=== PATIENT | female | born 1965 | race Caucasian/White ===

== ENCOUNTER 2017-11-01 16:27 | Emergency (ER) | payer SELFPAY ==
[~2017-11-01] VITALS: Ht 160 cm; Wt 59.0 kg
[~2017-11-01 16:27] MED LIST: CHLORDIAZEPOXID25 M3 PO; CYMBALTA60 M1 PO; DULOXETINE HCL30 MG PO; FLUOXETINE HCL20 M2 PO; HYDROCODON-ACE1 EAC2 PO; IBUPROFEN600 M1 PO; MOBIC15 M1 PO; TRAZODONE HCL50 M1 PO
[2017-11-01 18:06] LABS: ABSOLUTE BASOPHIL COUNT 0.1 /CUMM (0.0-0.2); ABSOLUTE EOSINOPHIL COUNT 0.1 /CUMM (0.0-0.7); ABSOLUTE GRANULOCYTE CT 5.9 /CUMM (1.4-6.5); ABSOLUTE LYMPH COUNT 2.1 /CUMM (1.2-3.4); ABSOLUTE MONOCYTE COUNT 0.7 /CUMM (0.10-0.60); BASOPHIL % 1.4 % (0.0-2.0); EOSINOPHIL % 1.6 % (0-5); HEMATOCRIT 49.3 % (37-47); MEAN CORPUSCULAR HGB CONC 33.2 G/DL (33.0-37.0); MEAN CORPUSCULAR VOLUME 93.5 FL (81.0-99.0); MEAN PLATELET VOLUME 9.8 FL (7.4-10.4); PLATELET COUNT 240 /CUMM (130-400); RED BLOOD CELL CT 5.27 /CUMM (4.20-5.40); WHITE BLOOD CELL COUNT 8.9 /CUMM (4.8-10.8)
[2017-11-01 18:18] LABS: PT 11.1 SEC (9.4-12.5); PTT 31 SEC (25-37)
--- NOTE | 2017-11-01 19:38 | CT SCAN REPORT ---
EXAMINATION: CT ANGIOGRAM ABDOMEN AND PELVIS CLINICAL INFORMATION: Worsening lower back pain. Evaluate aneurysm. COMPARISON: 08/14/2016 TECHNIQUE: Multiple axial images were obtained through the abdomen and pelvis following the administration of 95 mL of Optiray 350 intravenous contrast. Coronal and sagittal reformatted images obtained and reviewed. Images were reviewed on a dedicated 3-D workstation. DLP: 373 mGy-cm FINDINGS: Vascular: 1. There is a distal descending thoracic aortic aneurysm which extends into the proximal abdominal aorta. This measures 4.3 cm in AP dimension. This is without significant change from the previous study performed 08/14/2016. The celiac axis originates during the aneurysm, with the origin widely patent. The superior mesenteric artery origin is also widely patent, at the distal aspect of the aneurysm. 2. The remainder of the abdominal aorta is normal in caliber without aneurysm or dissection. Normal origin of the inferior mesenteric artery. 3. Single bilateral renal arteries are widely patent. Minimal nonocclusive calcification at the origin of the right renal artery. 4. The iliac vasculature and proximal femoral vasculature are patent. Minimal calcification at the common femoral arteries bilaterally resulting in no significant stenosis. Nonvascular: The lung bases are clear. The liver is normal in size and shape. No focal hepatic lesion or biliary ductal dilatation. The gallbladder is unremarkable. The pancreas, spleen, and adrenal glands are unremarkable. The kidneys are normal in size, shape and position. No hydronephrosis. No hydroureter. The bladder is unremarkable. The stomach is unremarkable. The small bowel is normal in caliber without obstruction. Normal appendix. There is wall thickening involving the descending and sigmoid colon with mild adjacent inflammation. This is consistent with colitis. No free air or free fluid. No abdominal wall hernia. No lymphadenopathy. The uterus and adnexa are unremarkable. No acute or suspicious osseous abnormality. Anterior wedge deformities of the T11 and T12 vertebral bodies are unchanged. IMPRESSION: 1. Stable aneurysm of the distal descending thoracic aorta and proximal abdominal aorta. This measures up to 4.3 cm in AP dimension. Unchanged span of the aneurysm. 2. Wall thickening with inflammation involving the descending and sigmoid colon, suggestive of colitis.
--- NOTE | 2017-11-01 19:49 | ED NECK/BACK PAIN COMPLAINT ---
History of Present Illness General Chief Complaint: Low Back Pain/Injury Stated Complaint: BACK PAIN Source: patient Exam Limitations: no limitations Vital Signs & Intake/Output Vital Signs & Intake/Output Vital Signs Date Time Temp Pulse Resp B/P B/P Pulse O2 O2 Flow FiO2 Mean Ox Delivery Rate 11/01 1732 97.9 98 20 130/84 97 Room Air Room Air Allergies Coded Allergies: NO KNOWN ALLERGIES (12/11/12) Reconcile Medications Duloxetine HCl 30 MG CAPSULE.DR 90 MG PO DAILY MENTAL HEALTH (Reported) Meloxicam (Mobic) 15 MG TABLET 1 TAB PO DAILY PAIN/INFLAMMATION Triage Note: PT TO ED WITH C/O BACK PAIN AND HEADACHE, "I HAVE A TRIPLE A, I GO FOR A CT EVERY 6 MONTHS AND IT HAS BEEN GOOD". Triage Nurses Notes Reviewed? yes HPI: Patient presents for evaluation of a severe low back pain, described as a constant burning sensation that gets worse with movement, that began about 2 days ago. Patient states that she has been suffering from back pain episodes for over 10 years. She also states that she has a known bowel aortic aneurysm that is being monitored with CAT scans. Patient denies any known trauma likewise denies any saddle paresthesias or motor weakness. She has not tried any medications for her pain to this point. Patient states the pain wraps around from the back bilaterally into the hips and lower abdomen. Nothing seems to make her feel better. Past History Travel History Traveled to [place] past 21 day No Medical History Any Pertinent Medical History? 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 No Review of Systems Review of Systems Constitutional: Reports: no symptoms. Eyes: Reports: no symptoms. Ears, Nose, Throat, Mouth: Reports: no symptoms. Respiratory: Reports: no symptoms. Cardiovascular: Reports: no symptoms. Gastrointestinal/Abdominal: Reports: no symptoms. Musculoskeletal: Reports: see HPI. Skin: Reports: no symptoms. Neurological/Psychological: Reports: no symptoms. All Other Systems: Reviewed and Negative Physical Exam Physical Exam Neck: SEE BELOW Comments: Gen.: Well-nourished, well-developed, no acute respiratory distress. Mild to moderate distress while at rest secondary to back pain. Pain worsens with movement. Head: Normocephalic, atraumatic. Eyes: Normal inspection bilaterally Ears: Normal inspection bilaterally Nose: Normal inspection Throat/mouth : Moist mucosa Neck: Supple, full range of motion, no goiter Lungs: Quiet respirations Back: Decreased range of motion secondary to pain. Tenderness over the lumbosacral spine without associated soft tissue swelling ecchymoses or erythema. Nontender over the sacroiliac joints. Patient bends to about 45 with pain. Extremities: Normal range of motion grossly, lower extremities: No straight leg raise sign, sensation intact bilaterally (no saddle paresthesias), deep tendon reflexes normal bilaterally, sensation to light touch intact bilaterally. Muscle strength normal bilaterally (able to stand on heels and toes normally). Neurologic: Cranial nerves grossly intact, speech is clear Skin: warm and dry Psychiatric: Calm, cooperative, no apparent delusions or hallucinations Core Measures CVA/TIA Diagnosis: No Progress Differential Diagnosis: cauda equina syn, herniated disc, myofascial strain, ABDOMINAL AORTIC ANEURYSM, AORTIC DISSECTION Plan of Care: Orders Procedure Date/time Status URINALYSIS 11/01 1737 Active PARTIAL THROMBOPLASTIN TIME 11/01 1737 Complete PROTHROMBIN TIME 11/01 1737 Complete COMPREHENSIVE METABOLIC PANEL 11/01 1737 Active CBC WITHOUT DIFFERENTIAL 11/01 1737 Complete Current Medications Sig/Dharmesh Start time Last Medication Dose Stop Time Status Admin Ketorolac 30 MG ONCE ONE 11/01 2014 UNVr Tromethamine 11/01 2015 (Toradol) Lorazepam 0.5 MG ONCE ONE 11/01 2014 UNVr (Ativan) 11/01 2015 Laboratory Tests 11/01/17 1746: PT 11.1, INR 1.06, APTT 31, CBC w Diff NO MAN DIFF REQ, RBC 5.27, MCV 93.5, MCH 31.0, MCHC 33.2, RDW 13.0, MPV 9.8, Gran % 66.0, Lymphocytes % 23.4, Monocytes % 7.6, Eosinophils % 1.6, Basophils % 1.4, Absolute Granulocytes 5.9, Absolute Lymphocytes 2.1, Absolute Monocytes 0.7 H, Absolute Eosinophils 0.1, Absolute Basophils 0.1 Diagnostic Imaging: Discussed w/RAD: CT Scan. Radiology Impression: PATIENT: LONNIE MONTERO PRESENT AGE: 52 PATIENT ACCOUNT NO: [id number] : 63 LOCATION: [facility] ORDERING PHYSICIAN: Priya HUGHES SERVICE DATE: 11/01/17 EXAM TYPE: CAT - CT ABD & PELVIS ANGIOGRAM EXAMINATION: CT ANGIOGRAM ABDOMEN AND PELVIS CLINICAL INFORMATION: Worsening lower back pain. Evaluate aneurysm. COMPARISON: 08/14/2016 TECHNIQUE: Multiple axial images were obtained through the abdomen and pelvis following the administration of 95 mL of Optiray 350 intravenous contrast. Coronal and sagittal reformatted images obtained and reviewed. Images were reviewed on a dedicated 3-D workstation. DLP: 373 mGy-cm FINDINGS: Vascular: 1. There is a distal descending thoracic aortic aneurysm which extends into the proximal abdominal aorta. This measures 4.3 cm in AP dimension. This is without significant change from the previous study performed 08/14/2016. The celiac axis originates during the aneurysm, with the origin widely patent. The superior mesenteric artery origin is also widely patent, at the distal aspect of the aneurysm. 2. The remainder of the abdominal aorta is normal in caliber without aneurysm or dissection. Normal origin of the inferior mesenteric artery. 3. Single bilateral renal arteries are widely patent. Minimal nonocclusive calcification at the origin of the right renal artery. 4. The iliac vasculature and proximal femoral vasculature are patent. Minimal calcification at the common femoral arteries bilaterally resulting in no significant stenosis. Nonvascular: The lung bases are clear. The liver is normal in size and shape. No focal hepatic lesion or biliary ductal dilatation. The gallbladder is unremarkable. The pancreas, spleen, and adrenal glands are unremarkable. The kidneys are normal in size, shape and position. No hydronephrosis. No hydroureter. The bladder is unremarkable. The stomach is unremarkable. The small bowel is normal in caliber without obstruction. Normal appendix. There is wall thickening involving the descending and sigmoid colon with mild adjacent inflammation. This is consistent with colitis. No free air or free fluid. No abdominal wall hernia. No lymphadenopathy. The uterus and adnexa are unremarkable. No acute or suspicious osseous abnormality. Anterior wedge deformities of the T11 and T12 vertebral bodies are unchanged. IMPRESSION: 1. Stable aneurysm of the distal descending thoracic aorta and proximal abdominal aorta. This measures up to 4.3 cm in AP dimension. Unchanged span of the aneurysm. 2. Wall thickening with inflammation involving the descending and sigmoid colon, suggestive of colitis. DICTATED BY: Rufion Boss MD DATE/ TIME DICTATED:11/01/171928 FLIGHT/TRANSPORT NURSE:JAMILAH DATE/TIME TRANSCRIBED: 11/01/171928 CONFIDENTIAL, DO NOT COPY WITHOUT APPROPRIATE AUTHORIZATION. < Electronically signed in Other Vendor System> SIGNED BY: Rufino Boss MD 11/01/171937 Departure Departure Disposition: HOME OR SELF CARE Condition: Stable Clinical Impression Primary Impression: Acute exacerbation of chronic low back pain Referrals: Pete Kc APRN (PCP/Family) Additional Instructions: Rest, no exertional heavy lifting. Follow-up with your primary care physician for reevaluation this week. Toradol as needed for pain, Norflex as needed for muscle spasms. Return if any concerns or sudden worsening. Please note that there might be incidental findings in your evaluation that are unrelated to the current emergency department visit. Please notify your primary care doctor about this emergency department visit in order to obtain and review all of the testing performed so that these incidental findings can be monitored as needed. If you had an x-ray performed, please understand that some fractures may not be seen on the initial set of x-rays. If your symptoms persist you might need a repeat set of x-rays to check for such a fracture. If you had a laceration evaluated, please understand that foreign bodies such as glass or wood may not be visible to the naked eye or on plain x-rays. If the wound becomes red, swollen, increasingly more painful or if there is any drainage from the wound, please have it reevaluated by a physician for the possibility of a retained foreign body. If you're unable to follow up as outlined in the discharge instructions please return to the emergency department. Thank you for choosing the [facility] Emergency Department for your care. It was a pleasure to serve you today. Pramod Lopez M.D. [facility] Departure Forms: Customer Survey General Discharge Information Prescriptions: Current Visit Scripts Ketorolac Tromethamine 1 TAB PO Q6P PRN BACK PAIN #16 TAB pATIENT RECEIVED iv KETOROLAC IN THE EMERGENCY DEPARTMENT Orphenadrine Citrate 1 TAB PO BID PRN MUSCLE PAIN/SPASMS #20 TAB
[2017-11-01] MEDS ORDERED: ORPHENADRINE C100 MG PO (20:11)
[2017-11-01] MEDS ORDERED: KETOROLAC TROME10 M1 PO (20:11)
[2017-11-01 20:18] VITALS: BP 125/81
[2017-11-02] MEDS ORDERED: KRATOM PO (20:16)
== END 2017-11-01 20:33 ==
LOC: ERH 16:27
PROVIDERS: Physician Assistant
DX: M54.5 Low back pain (principal)
CPT/HCPCS: 74174; 81003; 96374; 96375; J1885

== ENCOUNTER 2017-11-02 14:18 | Emergency (ER) | payer OTHER ==
[~2017-11-02 14:18] MED LIST changes: +KETOROLAC TROME10 M1 PO; +ORPHENADRINE C100 MG PO
--- NOTE | 2017-11-02 14:23 | ED GI/GU/ABDOMINAL COMPLAINT ---
History of Present Illness General Chief Complaint: ETOH/Drug Related Complaint Stated Complaint: BIBA FOR ETOH Source: patient, old records, EMS Exam Limitations: intoxication Vital Signs & Intake/Output Vital Signs & Intake/Output Vital Signs Date Time Temp Pulse Resp B/P B/P Pulse O2 O2 Flow FiO2 Mean Ox Delivery Rate 11/020 97.6 87 20 115/68 11/02 2149 97.6 87 20 115/68 98 Room Air 11/02 2007 98.1 98 16 148/90 11/02 2000 98.1 98 18 148/90 98 11/02 1810 97.6 92 18 127/77 11/02 1800 97.6 92 18 127/77 99 Room Air 11/02 1630 98.2 96 18 186/82 11/02 1554 98.2 96 18 18682 99 Room Air 11/02 1430 96.8 115 20 144/105 11/02 1424 96.8 115 20 144/105 100 Room Air ED Intake and Output 11/03 0000 11/02 1200 Intake Total Output Total Balance Patient 130 lb Weight Weight Reported by Patient Measurement Method Allergies Coded Allergies: NO KNOWN ALLERGIES (12/11/12) Triage Nurses Notes Reviewed? yes Onset: Abrupt Duration: minute(s): (few) Associated Symptoms: NAUSEA, CONFUSED HPI: 52 year old female presents to the ER from home after 911 was called to the house found her wandering, disheveled. Patietn admits to drinking alcohol today and states she relapsed. History is limited as she is intoxicated. Patient reports she is feeling nauseated. (Jayant STONER,Kathy) Reconcile Medications Duloxetine HCl 30 MG CAPSULE.DR 90 MG PO DAILY MENTAL HEALTH (Reported) Ketorolac Tromethamine 10 MG TABLET 1 TAB PO Q6P PRN BACK PAIN pATIENT RECEIVED iv KETOROLAC IN THE EMERGENCY DEPARTMENT [KRATOM] (Unknown Strength) (Unknown Dose) PO DAILY SUPPLEMENT (Reported) Orphenadrine Citrate 100 MG TABLET.ER 1 TAB PO BID PRN MUSCLE PAIN/SPASMS ? n Is pt currently ? No (Trip STONER,Jerrell) Past History Travel History Traveled to [place] past 21 day No Medical History Any Pertinent Medical History? 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 No (Kathy Saba MD) Review of Systems Review of Systems Constitutional: Reports: see HPI (PER HPI, PATIETN INTOXICATED). (Kathy Saba MD) Physical Exam Physical Exam General Appearance: alert, awake, mild distress, moderate distress, DISHEVELED Head: atraumatic Eyes: Bilateral: normal appearance. Ears, Nose, Throat, Mouth: hearing grossly normal Neck: normal inspection, supple Respiratory: normal breath sounds, chest non-tender, no respiratory distress Cardiovascular: regular rate/rhythm Gastrointestinal: normal bowel sounds, soft, non-tender Extremities: normal range of motion Neurologic/Psych: awake, alert Skin: intact, normal color, warm/dry Core Measures ACS in differential dx? No Sepsis Present: No Sepsis Focused Exam Completed? No (Kathy Saba MD) Progress Differential Diagnosis: ALCOHOL INTOXICATION, SUBSTANCE ABUSE, Plan of Care: Orders Procedure Date/time Status Regular Diet 11/03 B Active Discharge Patient 11/03 0017 Active CIWA 11/02 2143 Active OXYGEN SETUP (GEN) 11/02 1952 Active Saline Lock 11/[address] in observation 11/02 1952 Active Vital Signs 11/02 1952 Active Activity/Ambulation 11/02 1952 Active Code Status 11/02 1952 Active ED CRISIS PSYCH CONSULT 11/02 1808 Active LACTIC ACID 11/02 1724 Complete ETHANOL 11/02 1641 Complete BASIC METABOLIC PANEL 11/02 1641 Complete Telemetry/Roofing Machine Tender 11/02 1424 Active URINE DRUGS OF ABUSE 11/02 1424 Complete URINALYSIS 11/02 1424 Complete PARTIAL THROMBOPLASTIN TIME 11/02 1424 Complete PROTHROMBIN TIME 11/02 1424 Complete MAGNESIUM 11/02 1424 Complete LIPASE 11/02 1424 Complete LACTIC ACID 11/02 1424 Complete ETHANOL 11/02 1424 Complete COMPREHENSIVE METABOLIC PANEL 11/02 1424 Complete CBC WITHOUT DIFFERENTIAL 11/02 1424 Complete EKG 11/02 1424 Active Laboratory Tests 11/02/17 1756: Lactic Acid 1.1 11/02/17 1756: Anion Gap 8, Estimated GFR > 60, BUN/Creatinine Ratio 30.0 H, Glucose 112 H, Calcium 7.9 L, Serum Alcohol < 10.0 11/02/17 1553: Urine Opiates Screen < 100.00, Methadone Screen 80, Barbiturate Screen < 60, Ur Phencyclidine Scrn < 6.00, Amphetamines Screen 133, U Benzodiazepines Scrn < 85, Urine Cocaine Screen < 50, Urine Cannabis Screen 78.90 H, Urine Color YEL, Urine Clarity HAZY H, Urine pH 6.0, Ur Specific [place] >= 1.030, Urine Protein 30 H, Urine Ketones 15 H, Urine Nitrite NEG, Urine Bilirubin NEG@ICTO, Urine Urobilinogen 0.2, Ur Leukocyte Esterase NEG, Ur Microscopic SEDIMENT EXAMINED, Urine RBC RARE, Urine WBC RARE, Ur Epithelial Cells MOD H, Urine Bacteria MOD H, Hyaline Casts 3-5 H, Urine Mucus MOD H, Urine Hemoglobin NEG, Urine Glucose NEG 11/02/17 1430: Anion Gap 19 H, Estimated GFR > 60, BUN/Creatinine Ratio 25.7 H, Glucose 150 H, Lactic Acid 6.2 H, Calcium 9.8, Magnesium 1.8, Total Bilirubin 1.5 H, AST 29, ALT 26, Alkaline Phosphatase 101, Total Protein 7.4, Albumin 4.8, Globulin 2.6, Albumin/Globulin Ratio 1.8, Lipase 187, PT 11.6, INR 1.11, APTT 23 L, CBC w Diff NO MAN DIFF REQ, RBC 4.87, MCV 92.2, MCH 30.9, MCHC 33.5, RDW 12.7, MPV 9.5, Gran % 62.1, Lymphocytes % 27.3, Monocytes % 8.7, Eosinophils % 1.3, Basophils % 0.6, Absolute Granulocytes 5.9, Absolute Lymphocytes 2.6, Absolute Monocytes 0.8 H, Absolute Eosinophils 0.1, Absolute Basophils 0.1, Serum Alcohol 13.0 Initial ED EKG: SINUS TACHYCARDIA @ 101 BPM, BPM 483 Hand-Off Endorsed To: Jerrell Dominique MD Endorsed Time: 1899 Pending: consult (CRISIS, SOBRIETY) (Jayant STONER,Kathy) Comments: Declines to wait for crisis re-evaluation of her depression and requests discharge. (Jerrell Dominique MD) Departure Departure Condition: Stable Referrals: Pete Kc APRN (PCP/Family) (Kathy Saba MD) Departure Time of Disposition: 2355 Disposition: HOME OR SELF CARE Clinical Impression Primary Impression: Alcohol intoxication Secondary Impressions: Depression Additional Instructions: Call [phone] to speak to someone to see if IOP can be established. Departure Forms: General Discharge Information (Jerrell Dominique MD) ED Attending Observation Initial Observation Note: I have seen and personally examined KYLAHLONNIE GUADARRAMA on 11/02/17 at 1953. I agree with the current emergency department documentation. The disposition (admission or discharge) is uncertain at this time, she needs a period of observation for the following reason(s): CIWA scoring alcohol dependence The ED Nurse caring for this patient has been personally informed as to what the patient is being observed for. Observation Re-Evaluation: I have reevaluated LONNIE MONTERO on 11/03/17 at 0017. The physical findings that support the continued need to observe this patient include patient declines continued crisis assistance.. Observation Discharge: I have reevaluated LONNIE MONTERO on 11/03/17 at 0017. The patient is: (x): Stable for discharge (): To be admitted to Nursing Floor (): To be placed in Observation on Nursing Floor (): For transfer to other facility The patient was being observed for alcohol dependence, depression As a result of that observation, I have determined safe for discharge. (Jerrell Dominique MD)
[2017-11-02 14:46] LABS: ABSOLUTE BASOPHIL COUNT 0.1 /CUMM (0.0-0.2); ABSOLUTE EOSINOPHIL COUNT 0.1 /CUMM (0.0-0.7); ABSOLUTE MONOCYTE COUNT 0.8 /CUMM (0.10-0.60); RBC DISTRIBUTION WIDTH 12.7 % (11.5-14.5)
[2017-11-02 14:49] LABS: ABSOLUTE GRANULOCYTE CT 5.9 /CUMM (1.4-6.5); ABSOLUTE LYMPH COUNT 2.6 /CUMM (1.2-3.4); BASOPHIL % 0.6 % (0.0-2.0); EOSINOPHIL % 1.3 % (0-5); GRANULOCYTE % 62.1 % (42.2-75.2); HEMATOCRIT 44.9 % (37-47); MEAN CORPUSCULAR HGB 30.9 PG (27.0-31.0); MEAN CORPUSCULAR HGB CONC 33.5 G/DL (33.0-37.0); MEAN CORPUSCULAR VOLUME 92.2 FL (81.0-99.0); MEAN PLATELET VOLUME 9.5 FL (7.4-10.4); PLATELET COUNT 247 /CUMM (130-400); RED BLOOD CELL CT 4.87 /CUMM (4.20-5.40); WHITE BLOOD CELL COUNT 9.5 /CUMM (4.8-10.8)
[2017-11-02 14:56] LABS: PT 11.6 SEC (9.4-12.5); PTT 23 SEC (25-37)
[2017-11-02] MEDS ORDERED: KRATOM PO (20:16)
--- NOTE | 2017-11-02 20:31 | ED PSYCH CRISIS CONSULTATION ---
Crisis Consult Basic Assessment Date of Consult: 11/02/17 Insurance Authorization: Insurance #1: Insurance name: SELF-PAY Phone number: Policy number: Group number: Authorization number: ED Provider: Patient's ED Provider: Jerrell Dominique MD Primary Care Physician: Patient's PCP: Pete Kc APRN PCP's Current Psychiatrist: None Chief Complaint: ETOH/Drug Related Complaint Patient's Quote: "I've been passing out and not eating." Present Illness: The patient is a 52 year old, female presenting to the ED, with physical complaints and then disclosed her alcohol abuse and depression. She presents calm, cooperative and was easily engaged in the evaluation. She states that she relapsed on alcohol 1 month ago, after 11 years of sobriety and has not been able to stop drinking. She states since relapsing she has been drinking about 1 pint daily, noting she only had one "nip" today.She states since relapsing she has been feeling hopeless, helpless and worthless. She states her depression and anxiety are both an 8 out of 10, 10 being the most severe. She denies any current SI / HI / AH / VH. She has one previous suicide attempt, when she was 10 years old ad she took and OD. She reports having inconsistent sleeping patterns and has had no appetite. She has had minimal mental health and substance abuse treatment, including 2 inpatient admissions to [facility] (2005 and 2016), [facility] and a detox in [place]. She is not currently in treatment with anyone and has been prescribed Cymbalta through her PCP. She reports history of multiple traumas, however sates she was not sure if she wanted to get into that in the ED. She has been living with her adult son (23) and her , noting it is stressful as they are planning a divorce. She states that she remains friends with her , however she is very distressed about an arrest that he had. She states that her medical issues are very concerning to her, as she has chronic back pain issues and a "AAA." She reports that her daughter lives in [place] and it is difficult to be away from her, especially when her daughter is having relationship issues. She states that she has been smoking Cannabis since the 70's or 80's, with her last use being this AM. The patient reports that she is considering attending IOP again, to see if it will help her. SW discussed the evening IOP as an option, given that she works daily. She is interested in IOP, however is not clear about whether or not she would be willing to stop using Cannabis. She was made aware that she would not be appropriate for [facility], if she continues to use the Cannabis. LV spoke to her , Ronald Ochoa ([phone]), for collateral information. Ronald states that the patient does struggle with depression and anxiety. Ronald believes that the patient is sad about her daughter's stressors and not being with her. Ronald notes that when a life stressor occurs that patient takes it very hard. He is not sure what would be helpful at this time. Patient's Address: [address] [place] [address] Other Phone Number: Who Do You Live With? Patient/Self Family/Informants Interviewed: - Ronald Ochoa [phone] Allergies - Coded Allergies: NO KNOWN ALLERGIES (12/11/12) Current Medications - Scheduled Medications Duloxetine HCl 30 MG CAPSULE.DR 90 MG PO DAILY MENTAL HEALTH #90 (Reported) Entered as Reported by Sheryl Garzon on 06/26/17 1516 [KRATOM] (Unknown Strength) (Unknown Dose) PO DAILY SUPPLEMENT (Reported) Entered as Reported by Sheryl Garzon on 11/02/17 2016 Scheduled PRN Medications Ketorolac Tromethamine 10 MG TABLET 1 TAB PO Q6P PRN BACK PAIN #16 TAB Prescribed by Pramod Lopez MD on 11/01/17 Last Taken: Unknown Dose at an unknown date and time Orphenadrine Citrate 100 MG TABLET.ER 1 TAB PO BID PRN MUSCLE PAIN/SPASMS #20 TAB Prescribed by Pramod Lopez MD on 11/01/17 Last Taken: Unknown Dose at an unknown date and time Laboratory Results: Laboratory Tests 11/02/17 1756: Lactic Acid 1.1 11/02/17 1756: Anion Gap 8, Estimated GFR > 60, BUN/Creatinine Ratio 30.0 H, Glucose 112 H, Calcium 7.9 L, Serum Alcohol < 10.0 11/02/17 1553: Urine Opiates Screen < 100.00, Methadone Screen 80, Barbiturate Screen < 60, Ur Phencyclidine Scrn < 6.00, Amphetamines Screen 133, U Benzodiazepines Scrn < 85, Urine Cocaine Screen < 50, Urine Cannabis Screen 78.90 H, Urine Color YEL, Urine Clarity HAZY H, Urine pH 6.0, Ur Specific [place] >= 1.030, Urine Protein 30 H, Urine Ketones 15 H, Urine Nitrite NEG, Urine Bilirubin NEG@ICTO, Urine Urobilinogen 0.2, Ur Leukocyte Esterase NEG, Ur Microscopic SEDIMENT EXAMINED, Urine RBC RARE, Urine WBC RARE, Ur Epithelial Cells MOD H, Urine Bacteria MOD H, Hyaline Casts 3-5 H, Urine Mucus MOD H, Urine Hemoglobin NEG, Urine Glucose NEG 11/02/17 1430: Anion Gap 19 H, Estimated GFR > 60, BUN/Creatinine Ratio 25.7 H, Glucose 150 H, Lactic Acid 6.2 H, Calcium 9.8, Magnesium 1.8, Total Bilirubin 1.5 H, AST 29, ALT 26, Alkaline Phosphatase 101, Total Protein 7.4, Albumin 4.8, Globulin 2.6, Albumin/Globulin Ratio 1.8, Lipase 187, PT 11.6, INR 1.11, APTT 23 L, CBC w Diff NO MAN DIFF REQ, RBC 4.87, MCV 92.2, MCH 30.9, MCHC 33.5, RDW 12.7, MPV 9.5, Gran % 62.1, Lymphocytes % 27.3, Monocytes % 8.7, Eosinophils % 1.3, Basophils % 0.6, Absolute Granulocytes 5.9, Absolute Lymphocytes 2.6, Absolute Monocytes 0.8 H, Absolute Eosinophils 0.1, Absolute Basophils 0.1, Serum Alcohol 13.0 Past History Past Medical History Neurological: NONE EENT: NONE Cardiovascular: aortic aneurysm Respiratory: NONE Gastrointestinal: NONE Hepatic: NONE Renal: NONE Musculoskeletal: 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 Physical Limitations (Interventions): She states that she has back issues and has a "AAA." Psychiatric Treatment History Psych Treatment Psychiatric Treatment Yes Inpatient Treatment Yes Outpatient Treatment Yes Location of Treatment [facility] Reason for Treatment Depression and alcohol abuse Dates of Treatment IP-2006 and 2016, IOP 2016 Response to Treatment Unknown Diagnosis by History: alcohol use disorder, Depression Substance Use/Abuse History Drug Use/Abuse 1 Substances Used/Abused Yes Substance Used/Abused Alcohol First Use 8 years old Last Used This AM; 11/02/2017 How much used/taken 1 pint daily How often daily For how long She reports that she relapsed 1 month ago after 11 years of sobriety. Route of use oral Drug Use/Abuse 2 Substances Used/Abused Yes Substance Used/Abused Marijuana First Use "70's or 80's" Last Used Today; 11/02/2017 How much used/taken "1 puff." How often Unclear For how long Unlcear Route of use inhalation Substance Abuse Treatment Substance Abuse Treatment Past Substance Abuse TX Yes Inpatient Treatment Yes Outpatient Treatment No Location of Treatment A Detox program in [place] Reason for Treatment alcohol abuse Dates of Treatment Unclear Response to Treatment Unclear Comments: N/A Current Mental Status Mental Status Orientation: Person, Place, Situation Affect: Depressed Speech: WNL Neuro-vegetative: Appetite Decreased, Helpless, Sleep Disturbance, Feeling hopeless and worthless. Appearance Appearance- Dress/Hygiene: The patient was lying in the bed, in hospital attire, with good eye contact. Behaviors Thought Process: WNL Thought Content: WNL Memory: WNL Insight: WNL SI/HI Risk Assessment Past Suicidal Ideation/Attempts Yes Current Suicidal Ideation/Att No Past Homicidal Ideation/Att: No Current Homicidal Ideation/Attempts No Degree of Intent: She denies any current SI or HI. She states that she has had 1 suicide attempt when she was 10 years old. Danger To: N/A Gravely Disabled: N/A Risk Factors: high anxiety/distress, history of suicide atmpts, SA/MH hospitalized Lethality Ratin PTSD Checklist PTSD Done? patient declined (Did not want to discuss in ED) ED Management Sitter: Yes Restraints: No DSM5/PS Stressors/Medical Prob Diagnosis' (DSM 5, Stressors, Medical): F32.9 Uspecified Depressive Disorder F41.9 Unspecified Anxiety Disorder F10.20 Alcohol use Disorder F12.20 Cannabis use Disorder Current GAF: 50 Comments: N/A Departure Disposition Psych Medical Clearance Date: 11/02/17 Medically Cleared at: 1900 Time Started: 1899 Time Ended: 1999 Psychiatrist Consulted: Rodney Holman MD Date Disposition Established: 11/02/17 Time Disposition Established: 1999 Plan for Disposition - Modality: Hold over for reassessment in the AM. Contact: N/A Telephone: N/A Rationale for Disposition: The patient presents with depresison, anxiety and a recent relapse on alcohol. The patient deines any current SI / HI / AH / VH. The patient has been drinking a pint of alcohol daily. Case discussed with Dr. Holman and she will be held over for reassessment, to ensure that she does not go into withdrawal from alcohol and then OP VS. IOP will be discussed with her. Additional Instructions: N/A Referrals Pete Kc APRN (PCP/Family)
[2017-11-02 21:50] VITALS: BP 115/68
== END 2017-11-03 00:23 ==
LOC: ERH 14:18
PROVIDERS: Emergency Medicine
DX: F10.129 Alcohol abuse with intoxication, unspecified (principal); F32.9 Major depressive disorder, single episode, unspecified
CPT/HCPCS: 80307; 81001; 93005; 93010; 96361; 96372; 96374; 96375; G0463; G0480; J0131; J0500

== ENCOUNTER 2017-11-21 23:51 | Emergency (ER) | payer OTHER ==
[~2017-11-21] VITALS: Ht 160 cm; Wt 56.7 kg
[~2017-11-21 23:51] MED LIST changes: +KRATOM PO
--- NOTE | 2017-11-22 00:12 | ED GENERAL ADULT ---
History of Present Illness General Chief Complaint: ETOH/Drug Related Complaint Stated Complaint: " I'M HAVING ETOH WITHDRAWAL AND PANIC ATTACK" Source: patient, old records Exam Limitations: intoxication Vital Signs & Intake/Output Vital Signs & Intake/Output Vital Signs Date Time Temp Pulse Resp B/P B/P Pulse O2 O2 Flow FiO2 Mean Ox Delivery Rate 11/22 1155 97.9 85 16 142/68 97 Room Air 11/22 0800 99.0 82 18 145/87 100 Room Air 11/22 0500 98.9 81 18 151/94 11/22 0458 98.9 81 18 151/94 94 11/22 0200 99.3 94 18 143/74 11/22 0200 99.3 94 18 143/74 97 Room Air 11/22 0113 98.5 100 20 137/87 11/22 0025 97.9 99 18 139/80 97 Room Air Allergies Coded Allergies: NO KNOWN ALLERGIES (11/22/17) Triage Nurses Notes Reviewed? yes HPI: Patient presents requesting alcohol detox. Patient states that it just has to stop. Patient denies any suicidal or homicidal ideations. There is no history of DTs or withdrawal seizures. (Felice STONER,Vinay Morley) Reconcile Medications Clonidine HCl 0.1 MG TABLET 0 PO SEE ADMIN CRITERIA opiate detox 1 tab TID x 2 days 1 tab BID x 2 days 1 tab QD x 2 days Duloxetine HCl 30 MG CAPSULE.DR 90 MG PO DAILY MENTAL HEALTH (Reported) Gabapentin (Neurontin) 100 MG CAPSULE 0 PO SEE ADMIN CRITERIA alcohol dependency 1-2 cap TID x 2 days 1-2 cap BID x 2 days 1-2 cap QD x 2 days Ketorolac Tromethamine 10 MG TABLET 1 TAB PO Q6P PRN BACK PAIN pATIENT RECEIVED iv KETOROLAC IN THE EMERGENCY DEPARTMENT [KRATOM] (Unknown Strength) (Unknown Dose) PO DAILY SUPPLEMENT (Reported) Orphenadrine Citrate 100 MG TABLET.ER 1 TAB PO BID PRN MUSCLE PAIN/SPASMS (Trip STONER,Jerrell) Past History Travel History Traveled to [place] past 21 day No Medical History Any Pertinent Medical History? 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 No (Felice STONER,Vinay Morley) Review of Systems Review of Systems Constitutional: Reports: no symptoms. EENTM: Reports: no symptoms. Respiratory: Reports: no symptoms. Cardiovascular: Reports: no symptoms. GI: Reports: no symptoms. Genitourinary: Reports: no symptoms. Musculoskeletal: Reports: no symptoms. Skin: Reports: no symptoms. Neurological/Psychological: Reports: no symptoms. Hematologic/Endocrine: Reports: no symptoms. Immunologic/Allergic: Reports: no symptoms. All Other Systems: Reviewed and Negative (Felice STONER,Vinay Morley) Physical Exam Physical Exam General Appearance: well developed/nourished, alert, awake, intoxicated Head: atraumatic, normal appearance Eyes: Bilateral: PERRL, EOMI, other (SLUGGISH). Ears, Nose, Throat: normal pharynx, normal ENT inspection, hearing grossly normal Neck: normal inspection, supple, full range of motion Respiratory: normal breath sounds, chest non-tender, no respiratory distress, lungs clear Cardiovascular: regular rate/rhythm, normal peripheral pulses Gastrointestinal: normal bowel sounds, soft, non-tender Back: normal inspection, normal range of motion Extremities: normal inspection, normal capillary refill, normal range of motion, no edema Neurologic/Psych: no motor/sensory deficits, awake, alert, oriented x 3, normal mood/affect Skin: intact, normal color Core Measures ACS in differential dx? No CVA/TIA Diagnosis: No Sepsis Present: No Sepsis Focused Exam Completed? No (Felice STONER,Vinay Morley) Progress Differential Diagnoses I considered the following diagnoses in my evaluation of the patient: [ALCOHOL DEPENDENCY IN ACUTE WITHDRAWAL] Plan of Care: Orders Procedure Date/time Status Regular Diet 11/22 B Active CIWA 11/21 2357 Active URINE DRUGS OF ABUSE 11/21 2357 Complete ETHANOL 11/21 2357 Complete COMPREHENSIVE METABOLIC PANEL 11/21 2357 Complete CBC WITHOUT DIFFERENTIAL 11/21 2357 Complete Current Medications Sig/Dharmesh Start time Last Medication Dose Stop Time Status Admin Duloxetine HCl 90 MG DAILY 11/22 1131 UNVr 11/22 (Cymbalta) 1152 Laboratory Tests 11/22/17 0131: Urine Opiates Screen 115.00, Methadone Screen 77, Barbiturate Screen < 60, Ur Phencyclidine Scrn < 6.00, Amphetamines Screen < 100, U Benzodiazepines Scrn < 85, Urine Cocaine Screen < 50, Urine Cannabis Screen > 80.00 H 11/22/17 0020: Anion Gap 16, Estimated GFR > 60, BUN/Creatinine Ratio 22.5, Glucose 113 H, Calcium 9.0, Total Bilirubin 0.3, AST 34, ALT 19, Alkaline Phosphatase 105, Total Protein 6.6, Albumin 4.0, Globulin 2.6, Albumin/Globulin Ratio 1.5, CBC w Diff NO MAN DIFF REQ, RBC 4.67, MCV 91.3, MCH 31.3 H, MCHC 34.3, RDW 13.0, MPV 8.9, Gran % 71.9, Lymphocytes % 18.7 L, Monocytes % 8.2, Eosinophils % 0.3, Basophils % 0.9, Absolute Granulocytes 7.7 H, Absolute Lymphocytes 2.0, Absolute Monocytes 0.9 H, Absolute Eosinophils 0, Absolute Basophils 0.1, Serum Alcohol 104.0 Initial ED EKG: none Hand-Off Endorsed To: Jerrell Dominique MD Endorsed Time: 0700 Pending: other (SOBREITY, CIWA) (Felice STONER,Vinay Morley) Comments: Does not meet criteria for inpatient alcohol detox (Jerrell Dominique MD) Departure Departure Condition: Stable Clinical Impression Primary Impression: Alcohol intoxication Referrals: Peet Kc APRN (PCP/Family) Additional Instructions: FOLLOW UP WITH A DETOX FACILITY RETURN FOR ANY CONCERNS CALL 211 OR RETURN TO THE ER FOR ANY THOUGHTS OF HARMING YOURSELF OR ANYONE ELSE. (Vinay Viveros MD) Departure Time of Disposition: 1219 Disposition: HOME OR SELF CARE Departure Forms: General Discharge Information Prescriptions: Current Visit Scripts Gabapentin (Neurontin) 0 PO SEE ADMIN CRITERIA #24 CAP 1-2 cap TID x 2 days 1-2 cap BID x 2 days 1-2 cap QD x 2 days Clonidine HCl 0 PO SEE ADMIN CRITERIA #12 TAB 1 tab TID x 2 days 1 tab BID x 2 days 1 tab QD x 2 days (Hipona MD,Jerrell) Critical Care Note Critical Care Note Critical Care Time: non-applicable (Felice STONER,Vinay Morley)
[2017-11-22 00:33] LABS: ABSOLUTE BASOPHIL COUNT 0.1 /CUMM (0.0-0.2); ABSOLUTE EOSINOPHIL COUNT 0 /CUMM (0.0-0.7); ABSOLUTE GRANULOCYTE CT 7.7 /CUMM (1.4-6.5); ABSOLUTE MONOCYTE COUNT 0.9 /CUMM (0.10-0.60); BASOPHIL % 0.9 % (0.0-2.0); EOSINOPHIL % 0.3 % (0-5); GRANULOCYTE % 71.9 % (42.2-75.2); HEMATOCRIT 42.6 % (37-47); MEAN CORPUSCULAR HGB 31.3 PG (27.0-31.0); MEAN CORPUSCULAR HGB CONC 34.3 G/DL (33.0-37.0); MEAN CORPUSCULAR VOLUME 91.3 FL (81.0-99.0); MEAN PLATELET VOLUME 8.9 FL (7.4-10.4); PLATELET COUNT 198 /CUMM (130-400); RED BLOOD CELL CT 4.67 /CUMM (4.20-5.40); WHITE BLOOD CELL COUNT 10.7 /CUMM (4.8-10.8)
[2017-11-22 11:55] VITALS: BP 142/68
[2017-11-22] MEDS ORDERED: NEURONTIN100 M1 PO (12:23)
[2017-11-22] MEDS ORDERED: CLONIDINE HCL0.1 MG PO (12:23)
== END 2017-11-22 12:47 ==
LOC: ERH 23:51
PROVIDERS: Emergency Medicine
DX: F10.129 Alcohol abuse with intoxication, unspecified (principal)
CPT/HCPCS: 80307; G0480